=== PATIENT | male | born 1975 | race Caucasian/White ===

== ENCOUNTER 2016-06-29 09:40 | Emergency (ER) | payer BC ==
[~2016-06-29] VITALS: Ht 185.4 cm; Wt 100.9 kg
[~2016-06-29 09:40] MED LIST: CALC8.5C PO; METH4PAK4 PO; MULT20CH PO; OXYC-57 PO; OXYC1TAB3 PO
[2016-06-29 09:54] VITALS: TEMP 37; Ht 185.4 cm; Wt 100.9 kg
[2016-06-29] MEDS ORDERED: METH4PAK PO (10:38)
[2016-06-29] MEDS ORDERED: OXYC1TAB3 PO (10:38)
[2016-06-29 11:08] VITALS: BP 138/71; PULSE 69; O2SAT 99
--- NOTE | 2016-06-29 14:14 | EMERGENCY ROOM VISIT NOTE ---
History First contact with patient: 10:21 Chief Complaint: BACK PAIN Stated Complaint: SCIATICA History of Present Illness The patient is a 40 year old male who presents to the Emergency Room with complaints of his sciatica flaring up again. The patient reports a history of frequent sciatic pain. He follows with Juan Amaya PA-C in [place]. The patient reports that he usually has a prescription for steroids, but used it in the past few months and did not have any additional medication. The patient works at [employer] and does a lot of heavy labor and lifting. The patient denies any other known injury to the back, nor does he admit to any sudden onset of discomfort. He denies any bladder/bowel incontinence, saddle anesthesias, lower extremity weakness or foot drop. The patient cannot take NSAIDs because of a prior history of bariatric surgery. He denies any recent infections, fevers or chills. He rates his discomfort a 7 out of 10. Review of Systems 10 system review was performed and was negative except for pertinent positives and negatives as indicated in history of present illness Past Medical/Surgical History Medical Problems: (1) Achilles tendinitis (2) Achilles tendinitis (3) Asthma, Unspecified (4) Diab Khushboo Wo Compl, Type Ii Or Unspec Type, Not Uncntrld (5) Gout Nos (6) History Of Tobacco Use (7) Hypertension Nos (8) Left carpal tunnel syndrome (9) Right sided sciatica (10) Right sided sciatica (11) Right sided sciatica Surgical Problems: (1) Gastric bypass Family History FH: cancer FH: diabetes mellitus FH: heart disease FH: hypertension FH: kidney disease Social History Smoking Status: Never Smoker Alcohol Use: none Marital Status: single Occupation Status: employed Current/Historical Medications Scheduled Calcium W/ Vitamins D & K (Viactiv), 2 TABS PO DAILY Methylprednisolone (Medrol Dosepak), 0 PO DAILY Multiple Vitamins W/ Minerals (Adult One Daily Gummies), 2 TABS PO DAILY Scheduled PRN Oxycodone Ir (Roxicodone Ir), 1-2 TAB PO Q4H PRN for Pain Allergies Coded Allergies: Tramadol (Unverified Allergy, Unknown, "IT MADE ME FEEL FUNNY.", 06/29/16) NSAIDs (Verified Adverse Reaction, Mild, hx gastric bipass, 06/29/16) Acetaminophen (Verified Adverse Reaction, Unknown, nausea, 06/29/16) Codeine (Verified Adverse Reaction, Unknown, nausea, 06/29/16) Physical Exam Vital Signs Date Time Temp Pulse Resp B/P Pulse Ox O2 Delivery O2 Flow Rate FiO2 06/29/16 11:08 69 18 138/71 99 06/29/16 09:54 37.0 73 16 136/78 97 Room Air Physical Exam CONSTITUTIONAL: Healthy and well nourished. Alert and oriented X 3 with positive affect. Patient does not appear in any significant distress on exam. HEENT: Normocephalic, atraumatic. Pupils equal, round and reactive. NECK: Full active range of motion without discomfort. RESPIRATORY: Clear to auscultation bilaterally with no wheezing, crackles, rhonchi or stridor. CARDIOVASCULAR: Regular rate and rhythm with no murmurs, rubs or gallops. GASTROINTESTINAL: Bowel sounds present in all quadrants. Soft and nontender to palpation. MUSCULOSKELETAL: Examination shows mild tenderness to palpation through the lower back and SI joint. Negative logroll. Minimally positive straight leg raise. Pedal pulses are intact. Ankle plantar/dorsiflexion strength is 5 out of 5 and symmetric bilaterally. INTEGUMENTARY: No rash or other significant dermatologic conditions noted. NEUROLOGIC: Cranial nerves II-XII grossly intact. Lower extremity deep tendon reflexes are 2+ and symmetric bilaterally. Medical Decision & Procedures ER Provider Diagnostic Interpretation: CT ANGIOGRAPHY OF THE CHEST, PULMONARY EMBOLUS PROTOCOL CLINICAL HISTORY: Upper respiratory infection. Cough. Pneumonia. COMPARISON STUDY: No previous studies for comparison. TECHNIQUE: Following IV administration of 108 mL of Optiray-320, helical axial images of the chest were obtained utilizing the pulmonary embolus protocol. Maximal intensity projections and sagittal and coronal reformats were viewed on an independent 3D workstation. IV contrast was administered without complication. CT DOSE: 329.23 mGy.cm FINDINGS: No pulmonary emboli are identified although the segmental and subsegmental pulmonary arteries are suboptimally assessed due to respiratory motion. Size of the heart is at the upper limits of normal. There are a few mildly enlarged left hilar lymph nodes that measure up to 1.1 cm in short axis diameter. Central airways are patent. Lungs are suboptimally assessed due to respiratory motion. There is a dense round focus of consolidation within the left lower lobe that measures 7.9 x 4 cm. There is adjacent groundglass opacity. There is no pneumothorax. A trace left pleural effusion is present. There is no cavitation. There is no suspicious osseous lesion. There is mild dextroscoliosis of the thoracic spine. Visualized portions of the upper abdomen are unremarkable. IMPRESSION: 1. No pulmonary emboli identified although exam significantly compromised by respiratory motion artifact. Segmental and subsegmental pulmonary arteries are suboptimally assessed due to respiratory motion. 2. Dense left lower lobe mass-like opacity highly suggestive of pneumonia. Post treatment radiographs to ensure resolution are recommended to exclude the much less likely possibility of a mass. Trace left pleural effusion. No cavitation. 3. Mild left hilar lymphadenopathy which is likely reactive. ED Course Patient history and physical exam were performed. Nurse's notes were reviewed. I did review prior medical records, showing several visits in the past for his acute sciatica. I explained to the patient that emergency department management is inappropriate, and that he should discuss further chronic ongoing pain management, or at least having prescriptions handy, for when he has a sciatica flare. The patient was provided a prescription for a Medrol Dosepak and OxyIR 5 mg, dispensed #15 with no refills. The patient was instructed to follow-up with his PCP if symptoms are not improving within the next 3-5 days. The patient was happy with plan of care, voiced understanding of all discharge instructions, and rated his pain a 6 out of 10 at the time of discharge. Medical Decision Impression Primary Impression: Left-sided low back pain with sciatica Departure Information Dispostion Home / Self-Care Prescriptions Oxycodone Ir (Roxicodone Ir) 5 Mg Tab 1-2 TAB PO Q4H Y for Pain, #15 TAB For Initial Treatment Prov: Giovanny Hernandez PA 06/29/16 Methylprednisolone (MEDROL DOSEPAK) 4 Mg Varun 0 PO DAILY, #1 PKT Prov: Giovanny Hernandez PA 06/29/16 Referrals John Amaya PA-C (PCP) Forms HOME CARE DOCUMENTATION FORM, IMPORTANT VISIT INFORMATION Patient Instructions My [facility], ED Sciatica Additional Instructions Avoid heavy lifting or sitting for long periods of time. Take Medrol Dosepak and OxyIR as prescribed. Do not drink alcohol or drive while taking OxyIR. On your next visit with your PCP, discuss having additional prescriptions for when you have a sciatic flare. Hopefully prevent future visits to the emergency department for prescription refills. Problem Qualifiers Primary Impression: Left-sided low back pain with sciatica Chronicity: chronic Sciatica laterality: sciatica of left side Qualified Codes: M54.42 - Lumbago with sciatica, left side; G89.29 - Other chronic pain
== END 2016-06-29 11:09 | disposition home or self-care (01) ==
LOC: C.EDB 09:44 → C.EDC 11:09
DX: M54.42 Lumbago with sciatica, left side (principal); G89.29 Other chronic pain; J45.909 Unspecified asthma, uncomplicated; E11.9 Type 2 diabetes mellitus without complications; M10.9 Gout, unspecified; F17.210 Nicotine dependence, cigarettes, uncomplicated; I10 Essential (primary) hypertension; Z98.84 Bariatric surgery status

== ENCOUNTER 2017-07-10 04:48 | Emergency (ER) | payer BC ==
[~2017-07-10] VITALS: Ht 185.4 cm; Wt 98.9 kg
[~2017-07-10 04:48] MED LIST changes: -METH4PAK4 PO; -OXYC-57 PO; -OXYC1TAB3 PO
[2017-07-10 04:56] VITALS: TEMP 36.8; Ht 185.4 cm; Wt 98.9 kg
[2017-07-10] MEDS ORDERED: ALBUT/IPRATROP 3MG/0.5MG NEB 3 ML VIAL INH STA (05:02)
[2017-07-10] MEDS ORDERED: DEXAMETHASONE **PF** INJ 10 MG/ML VIAL IV ONE (05:15)
[2017-07-10] MEDS ORDERED: ACET-1256 PO (05:22)
[2017-07-10 05:26] LABS: BASO % 0.5 %; BASO ABS # 0.02 K/uL (0-0.2); EOS % 0.8 %; EOS ABS # 0.03 K/uL (0-0.5); HEMATOCRIT 47.2 % (42-52); HEMOGLOBIN 16.4 g/dL (14.0-18.0); LYMPH % 18.8 %; LYMPH ABS # 0.74 K/uL (1.2-3.4); MEAN CELL VOLUME 81.5 fL (80-100); MEAN CORPUSCULAR HEMOGLOBIN 28.3 pg (25-34); MEAN CORPUSCULAR HGB CONC 34.7 g/dl (32-36); MEAN PLATELET VOLUME 10.1 fL (7.4-10.4); MONO % 11.9 %; MONO ABS # 0.47 K/uL (0.11-0.59); NEUT ABS # 2.68 K/uL (1.4-6.5); PLATELET COUNT 192 K/uL (130-400); RED CELL DISTRIBUTION WIDTH SD 41.5 fL (36.4-46.3); WHITE BLOOD COUNT 3.94 K/uL (4.8-10.8)
[2017-07-10 05:45] LABS: ALBUMIN 4.3 gm/dl (3.4-5.0); CALCIUM 9.1 mg/dl (8.5-10.1); CREATININE 1.25 mg/dl (0.60-1.40); POTASSIUM 3.6 mmol/L (3.5-5.1)
[2017-07-10 05:48] LABS: TOTAL PROTEIN 8.8 gm/dl (6.4-8.2)
[2017-07-10] MEDS ORDERED: METH4PAK PO (05:59)
[2017-07-10] MEDS ORDERED: OPTIRAY 320 IV PRN (06:00)
[2017-07-10] MEDS ORDERED: ALBUTEROL HFA 8 GM INHALER INH STA (06:38)
--- NOTE | 2017-07-10 07:03 | DIAGNOSTIC IMAGING REPORT ---
CHEST ONE VIEW PORTABLE CLINICAL HISTORY: 41 years-old Male presenting with CHEST PAIN. TECHNIQUE: Portable upright AP view of the chest was obtained. COMPARISON: CTA of the chest performed subsequently the same day. FINDINGS: Cardiomediastinal silhouette normal. Lungs and pleural spaces clear. Osseous structures normal. Upper abdomen normal. IMPRESSION: 1. No acute cardiopulmonary disease. Please see subsequently dictated CT of the chest for additional findings not radiographically apparent. Electronically signed by: Chad Green M.D. 07/10/2017 7:02 AM Dictated Date/Time: 07/10/2017 7:00 AM
--- NOTE | 2017-07-10 07:09 | EMERGENCY ROOM VISIT NOTE ---
History First contact with patient: 04:58 Chief Complaint: RIB PAIN Stated Complaint: RIBS HURT History of Present Illness The patient is a 41 year old male who presents to the Emergency Room with complaints of dry cough with lower chest pain today has been coughing for the past 2 weeks. He states when he coughs the chest pain is present. Stratus discomfort, ranging in severity 6 out of 10. Nothing makes it better, coughing makes it worse. Patient states he cannot take NSAIDs or tramadol. He has been taking Tylenol with no improvement of symptoms. He has had a DVT in the past. No recent travel. He does not smoke. No recent surgery. Patient denies dyspnea, fever, chills, productive cough, abdominal pain, back pain, leg pain or swelling. Patient states he can take Tylenol and has been taking it. He is not allergic. Review of Systems An 10 system review of systems was completed with positives and pertinent negatives listed in the HPI. Past Medical/Surgical History Medical Problems: (1) Achilles tendinitis (2) Achilles tendinitis (3) Asthma, Unspecified (4) Diab Khushboo Wo Compl, Type Ii Or Unspec Type, Not Uncntrld (5) Gout Nos (6) History Of Tobacco Use (7) Hypertension Nos (8) Left carpal tunnel syndrome (9) Right sided sciatica (10) Right sided sciatica (11) Right sided sciatica Surgical Problems: (1) Gastric bypass Family History FH: cancer FH: diabetes mellitus FH: heart disease FH: hypertension FH: kidney disease Social History Smoking Status: Never Smoker Smokeless Tobacco Use: No Alcohol Use: none Drug Use: none Marital Status: single Occupation Status: employed Current/Historical Medications Scheduled Calcium W/ Vitamins D & K (Viactiv), 2 TABS PO DAILY Doxycycline Hyclate (Vibramycin), 100 MG PO BID Methylprednisolone (Medrol Dosepak), 0 PO DAILY Multiple Vitamins W/ Minerals (Adult One Daily Gummies), 2 TABS PO DAILY Scheduled PRN Acetaminophen (Tylenol), 1,000 MG PO DIRECTED PRN for Pain or Fever Physical Exam Vital Signs Date Time Temp Pulse Resp B/P (MAP) Pulse Ox O2 Delivery O2 Flow Rate FiO2 07/10/17 06:31 146/83 07/10/17 06:28 91 21 95 Room Air 07/10/17 06:13 85 95 07/10/17 05:43 88 97 07/10/17 05:31 118/67 07/10/17 05:28 70 14 100 07/10/17 05:24 82 07/10/17 05:23 84 16 95 Room Air 07/10/17 05:18 Room Air 07/10/17 05:12 153/95 07/10/17 04:56 36.8 92 20 127/94 96 Room Air Physical Exam VITALS: Vitals are noted on the nurse's note and reviewed by myself. Vital signs stable. GENERAL: White male speaking in full sentences in no acute distress, nondiaphoretic, well-developed well-nourished. SKIN: The skin was without rashes, erythema, edema, or bruising. There is no tenting of the skin. Capillary reflex less than 2 seconds. HEAD: Normocephalic atraumatic. EARS: External auditory canals clear, tympanic membranes pearly coley without erythema or effusion bilaterally. EYES: Pupils equal round and reactive to light and accommodation. Conjunctivae without injection, sclerae without icterus. Extraocular movements intact. NOSE: Patent, turbinates without inflammation or discharge. No sinus tenderness. MOUTH: Mucous membranes moist. Pharynx without erythema or exudate. Uvula midline. Airway patent. Tongue does not deviate. NECK: Supple without nuchal rigidity. No lymphadenopathy. No thyromegaly. Cervical spine is nontender. No JVD. HEART: Regular rate and rhythm without murmurs gallops or rubs. Chest nontender to palpation LUNGS: Mild diffuse end expiratory wheezes, without rales or rhonchi. No dullness to percussion. No retractions or accessory muscle use. ABDOMEN: Positive bowel sounds x 4. Normal tympanic percussion. Soft, nontender, without masses or organomegaly. Rg sign negative. No guarding or rebound tenderness. MUSCULOSKELETAL: No muscle atrophy, erythema, or edema noted. NEURO: Patient was alert and oriented to person place and time. Normal sensation to light and sharp touch.No focal neurological deficits. Medical Decision & Procedures Laboratory Results 07/10/17 05:10 Red Blood Count 5.79, Mean Corpuscular Volume 81.5, Mean Corpuscular Hemoglobin 28.3, Mean Corpuscular Hemoglobin Concent 34.7, Mean Platelet Volume 10.1, Neutrophils (%) (Auto) 68.0, Lymphocytes (%) (Auto) 18.8, Monocytes (%) (Auto) 11.9, Eosinophils (%) (Auto) 0.8, Basophils (%) (Auto) 0.5, Neutrophils # (Auto ) 2.68, Lymphocytes # (Auto) 0.74, Monocytes # (Auto) 0.47, Eosinophils # (Auto ) 0.03, Basophils # (Auto) 0.02 07/10/17 05:10 Test 07/10/17 05:10 07/10/17 05:35 White Blood Count 3.94 K/uL (4.8-10.8) Red Blood Count 5.79 M/uL (4.7-6.1) Hemoglobin 16.4 g/dL (14.0-18.0) Hematocrit 47.2 % (42-52) Mean Corpuscular Volume 81.5 fL (80-100) Mean Corpuscular Hemoglobin 28.3 pg (25-34) Mean Corpuscular Hemoglobin Concent 34.7 g/dl (32-36) Platelet Count 192 K/uL (130-400) Mean Platelet Volume 10.1 fL (7.4-10.4) Neutrophils (%) (Auto) 68.0 % Lymphocytes (%) (Auto) 18.8 % Monocytes (%) (Auto) 11.9 % Eosinophils (%) (Auto) 0.8 % Basophils (%) (Auto) 0.5 % Neutrophils # (Auto) 2.68 K/uL (1.4-6.5) Lymphocytes # (Auto) 0.74 K/uL (1.2-3.4) Monocytes # (Auto) 0.47 K/uL (0.11-0.59) Eosinophils # (Auto) 0.03 K/uL (0-0.5) Basophils # (Auto) 0.02 K/uL (0-0.2) RDW Standard Deviation 41.5 fL (36.4-46.3) RDW Coefficient of Variation 14.0 % (11.5-14.5) Immature Granulocyte % (Auto) 0.0 % Immature Granulocyte # (Auto) 0.00 K/uL (0.00-0.02) Anion Gap 6.0 mmol/L (3-11) Est Creatinine Clear Calc Drug Dose 96.2 ml/min Estimated GFR () 82.4 Estimated GFR (Non- 71.1 BUN/Creatinine Ratio 17.6 (10-20) Calcium Level 9.1 mg/dl (8.5-10.1) Total Bilirubin 0.6 mg/dl (0.2-1) Direct Bilirubin 0.2 mg/dl (0-0.2) Aspartate Amino Transf (AST/SGOT) 34 U/L (15-37) Alanine Aminotransferase (ALT/SGPT) 37 U/L (12-78) Alkaline Phosphatase 182 U/L (45-117) Total Protein 8.8 gm/dl (6.4-8.2) Albumin 4.3 gm/dl (3.4-5.0) Bedside D-Dimer > 450 ng/mlFEU (0-450) Bedside Troponin I < 0.030 ng/ml (0-0.045) Medications Administered Medications (Trade) Dose Ordered Sig/Sigrid Route Start Time Stop Time Status Last Admin Dose Admin Albuterol/ Ipratropium (Duoneb) 3 ml NOW STAT INH 07/10/17 05:02 07/10/17 05:04 DC 07/10/17 05:24 3 ML Dexamethasone Sodium Phosphate (Dexamethasone Inj Pf) 10 mg NOW ONCE IV 07/10/17 05:15 07/10/17 05:16 DC 07/10/17 05:20 10 MG ED Course Prior records/ancillary studies reviewed. Triage Nursing notes reviewed. The patient's history was concerning for cough with chest pain. Differential diagnosis: Etiologies such as pleurisy, cardiac ischemia, aortic dissection, pulmonary embolism, pneumonia, pneumothorax, musculoskeletal, infections, pericarditis, myocarditis, esophageal rupture, gastrointestinal, as well as others were entertained. Physical examination: As above. ER treatment provided: Decadron, nebulizer On reassessment the patient felt better. Diagnostic interpretation by me: The electrocardiogram was negative for pathologic change. Normal sinus, normal intervals, no acute ST-T changes. Impression normal sinus rhythm interpreted by myself The labs revealed negative troponin. Elevated d-dimer and patient was sent for CTA. Elevated alk phos. Imaging studies: (CHEST FOR PE) ANGIO WITH CT DOSE: 580.22 mGy.cm HISTORY: 41 years-old Male presents with acute left lateral atypical chest pain with history of DVT elevated d-dimer. TECHNIQUE: Multiple CTA images of the chest were obtained after the intravenous administration of 101 ml Optiray 320. Coronal and sagittal MIPS were obtained from the axial data set and were submitted for review. A dose lowering technique was utilized adhering to the principles of ALARA. COMPARISON: Duplex venous Doppler study 11/22/2015. FINDINGS: CTA: Heart is normal in size without pericardial effusion. The thoracic aorta is normal in both course and caliber without aneurysm or dissection. The imaged great vessels appear to be patent. The pulmonary arterial tree is opacified to level of the segmental branches proximally. The distal segmental and subsegmental branches are not opacified secondary to contrast bolus timing. No central pulmonary embolus identified. CT CHEST: The thyroid is homogeneous. Mildly enlarged 12 mm subcarinal lymph node is seen. Mildly prominent 8 mm right hilar lymph node is also present. No additional pathologic adenopathy. No pneumothorax, pleural effusion or focal airspace consolidation identified. There is mild bronchial wall thickening bilaterally. There is mild subsegmental tree-in-bud nodularity seen bilaterally within all lobes. 3 mm fissural lymph node is seen adjacent to the left major fissure the left lung apex on image 249 series 4. No suspicious pulmonary nodules identified. No pulmonary masses. The central airways are patent. Postoperative changes from prior gastric bypass. No acute abnormality of the imaged upper abdomen. Soft tissues are unremarkable. Bones appear intact. IMPRESSION: 1. No acute aortic pathology or evidence of pulmonary thromboembolic disease. 2. Multilobar multisegmental distribution of patchy tree-in-bud nodularity with associated bronchial wall thickening suggests bronchiolitis with bronchitis likely from infectious or inflammatory etiology. No lobar airspace consolidation to suggest pneumonia. 3. Mildly enlarged subcarinal lymph node is likely reactive. 4. Postoperative changes from prior gastric bypass. The above report was generated using voice recognition software. It may contain grammatical, syntax or spelling errors. Electronically signed by: Vicente Prieto M.D. 07/10/2017 7:05 AM Exam and history seem consistent with bronchitis with pleurisy. Patient was started on antibiotics. Patient was neurovascularly and neurologically intact. No signs of pneumonia. Normal EKG. Negative troponin. He was advised to follow-up with family care in a few days or here in the ER sooner for severe pain, fevers, worsening signs or symptoms or as needed. He was advised to take medications as directed, rest and stay well-hydrated. By the evaluation outlined above emergent etiologies such as cardiac ischemia, aortic dissection, pulmonary embolism, pneumothorax, pericarditis, myocarditis, gastrointestinal, as well as others were deemed relatively unlikely. The pt informed about the findings as listed above. All questions were answered and pleased with the treatment. Return instructions were outlined and the patient was discharged in stable condition. Outpatient prescription management: medrol varun, doxycycline Referral: The patient was referred back to primary care physician for follow-up in 2 to 3 days for a recheck of the current condition. Case reviewed with my attending The chart was completed utilizing [employer] voice recognition software. Grammatical errors, random word insertions, pronoun errors, and incomplete sentences are an occassional consequence of this system due to software limitations, ambient noise, and hardware issues. Any formal questions or concerns about the content, text, or information contained within the body of this dictation should be directly addressed to the physician electrical assistant for clarification. Medical Decision as above Medication Reconcilliation Current Medication List: was personally reviewed by me Blood Pressure Screening Patient's blood pressure: Normal blood pressure Impression Primary Impression: Bronchitis Additional Impression: Pleurisy Departure Information Dispostion Home / Self-Care Condition GOOD Prescriptions Doxycycline Hyclate (VIBRAMYCIN) 100 Mg Cap 100 MG PO BID for 7 Days, #14 CAP Prov: Fatmata La PA-C 07/10/17 Methylprednisolone (MEDROL DOSEPAK) 4 Mg Varun 0 PO DAILY, #1 PKT Prov: Fatmata La .FABIANA 07/10/17 Referrals No Doctor, Assigned (PCP) Patient Instructions My [facility] Additional Instructions Your alk phos blood test is elevated. Follow-up with family care for this. Albuterol Inhaler: Take 2 puffs four times daily for five days, then as needed. Medrol Dosepak as directed Doxycycline 100 mg: Take 1 tablet twice a day for 7 days. All antibiotics can cause diarrhea. If this occurs and you feel worse or it does not resolve in 1- 2 days follow up with your doctor or return to the Emergency Department as this could be signs of serious underlying problems. Any medication can cause an allergic reaction, stop the pills immediately and return to the ER for rash, hives, breathing difficulties, or swelling. Avoid excessive sun exposure on this medication. Acetaminophen(Tylenol) may be used for fever or pain. Use 1000mg every six hours as needed. Avoid using more than 3000mg in a 24 hour period. Rest and drink plenty of fluids. Avoid smoke/smoking, fumes, dust, or any triggers in the past that may have affected your breathing. Continue current medications. Return to the ER for chest pain, difficulty breathing, fevers, vomiting, worsening of your condition, or as needed. Follow up with your primary physician this week for a recheck of your current condition. Problem Qualifiers
[2017-07-10] MEDS ORDERED: DOXY100C2 PO (07:10)
[2017-07-10] MEDS ORDERED: DOXYCYCLINE HYCLATE 100 MG CAP PO ONE (07:15)
[2017-07-10] MEDS ORDERED: OXYCODONE IR HOME PACK PO ONE (07:15)
[2017-07-10 07:24] VITALS: BP 145/88; PULSE 91; O2SAT 95
== END 2017-07-10 07:30 | disposition home or self-care (01) ==
LOC: C.EDB 04:49
DX: J40 Bronchitis, not specified as acute or chronic (principal); R09.1 Pleurisy; J45.909 Unspecified asthma, uncomplicated; E11.9 Type 2 diabetes mellitus without complications; I10 Essential (primary) hypertension; F17.200 Nicotine dependence, unspecified, uncomplicated; Z83.3 Family history of diabetes mellitus; Z82.49 Family history of ischemic heart disease and other diseases of the circulatory system; Z86.718 Personal history of other venous thrombosis and embolism